=== PATIENT | female | born 1980 | race Caucasian/White ===

== ENCOUNTER 2018-02-10 06:49 | Emergency (ER) | payer BC ==
[2014-02-27 09:49] VITALS: Wt 68.0 kg
[~2018-02-10 06:49] MED LIST: ACET-3079 PO; AMOX-559 PO; AMOX875T60 PO; Acetaminophen PO; Benzocaine 60 ML TP; CIPR-344 PO; DIPH-1 PO; DOCU240C67 PO; FLUC150T40 PO; HYDR2TAB74 PO; IBU600 PO; Ibuprofen PO; LOR5 PO; LOR5/325 PO; LOR7.5/325 PO; Lanolin TP; METR-160 PO; NITR-105 PO; NORE1TAB81 PO; ONDA4TAB PO; ONDA8TAB98 PO; OXYC-865 PO; PRED20TA6 PO; PREN1TAB29 PO; TUCKS TP; bcp
--- NOTE | 2018-02-10 07:39 | ER Report ---
History and Physical Time Seen By MD: 07:00 Hx. of Stated Complaint: Pt. has had a cold since last week, and now has some pain with deep breathing and coughing. Afebrile in triage. Non-productive congested cough. HPI/ROS CHIEF COMPLAINT: Cough cold flulike symptoms HISTORY OF PRESENT ILLNESS: Otherwise healthy 38 year old female comes emergency Department today with 3-4 days of a productive cough sinus congestion takes [id number] cold medicines every 4-6 hours with some relief of symptoms denies any fever chills or sweats no decrease in by mouth says she is coughing up yellow phlegm feels a lot of pressure in her sinuses is had a continual rhinorrhea and and [place] congestion noted some decreased energy levels no recent travel no sick contacts no additional complaints noted. Comes in today because she said for about 5 minutes when she woke up this morning she felt somewhat short of breath but that subsequently resolved. Patient also states she has some tenderness in her right ear. REVIEW OF SYSTEMS: Respiratory: Cough no shortness of breath currently Cardiovascular: No chest pain, no palpitations. Gastrointestinal: No vomiting, no abdominal pain. Musculoskeletal: No back pain. Remainder of the 14 system rev: Yes Allergies: Coded Allergies: cefixime (Verified Allergy, Unknown, 02/10/18) Home Meds Active Scripts Amoxicillin/Pot Clav 875-125 Mg Tab (AUGMENTIN 875-125 TABLET) 1 Each Tablet, 1 TAB PO Q12H for 7 Days, #14 TAB 0 Refills Prov:FITZ BOOGIE MD 03/23/17 Reported Medications Norethindrone A-E Estradiol (LOESTRIN) 1 Each Tablet, 1 EACH PO QDAY 05/01/16 Reviewed Nurses Notes: Yes Old Medical Records Reviewed: Yes Hx Smoking: No Smoking Status: Never Smoker Exposure to Second Hand Smoke?: No Hx Substance Use Disorder: No Hx Alcohol Use: Yes (rare) Constitutional Vital Sign - Last 24 Hours 02/10/18 02/10/18 02/10/18 02/10/18 06:54 06:55 06:55 06:59 Temp 98.1 Pulse ??? 85 87 Resp 16 B/P (MAP) 128/93 (105) 128/93 Pulse Ox 97 96 O2 Delivery Room Air 02/10/18 02/10/18 02/10/18 02/10/18 07:00 07:04 07:09 07:14 Pulse 88 90 B/P (MAP) 128/85 (99) Pulse Ox 96 97 02/10/18 02/10/18 02/10/18 02/10/18 07:19 07:24 07:29 07:30 Pulse ??? 92 85 B/P (MAP) ???/??? Pulse Ox 94 96 02/10/18 02/10/18 02/10/18 02/10/18 07:34 07:39 07:44 07:49 Pulse 89 ??? 87 ??? Pulse Ox 96 96 89 02/10/18 02/10/18 02/10/18 07:59 08:00 08:09 Pulse 84 79 B/P (MAP) 104/71 Pulse Ox 96 96 Physical Exam General Appearance: The patient is alert, has no immediate need for airway protection and no current signs of toxicity. [ ] Eyes: Pupils equal and round no injection. Respiratory: Chest is non tender, lungs are clear to auscultation. Cardiac: regular rate and rhythm [ ] Gastrointestinal: Abdomen is soft and non tender, no masses, bowel sounds normal. Musculoskeletal: Neck: Neck is supple and non tender. Extremities have full range of motion and are non tender. Skin: No rashes or lesions. HEENT examination patient's right ear does demonstrate a little bit of erythema but no bulging TM no external movement pain in the pinnae or tragus negative throat exam was some mild erythematous changes but no tonsillar exudate or uvular deviation no. Tonsillar submandibular lymphadenopathy otherwise exam is normal DIFFERENTIAL DIAGNOSIS: After history and physical exam differential diagnosis was considered for common cold versus bronchitis versus sinusitis versus influenza versus pneumonia Medical Decision Making Data Points Laboratory Hematology Test 02/10/18 07:43 Influenza Virus Type A (PCR) Negative (NEGATIVE) Influenza Virus Type B (PCR) Negative (NEGATIVE) Group A Streptococcus Screen Negative (NEGATIVE) Chemistry Test 02/10/18 07:43 Influenza Virus Type A (PCR) Negative (NEGATIVE) Influenza Virus Type B (PCR) Negative (NEGATIVE) Group A Streptococcus Screen Negative (NEGATIVE) ED Course/Re-evaluation ED Course ED clinical course 38-year-old female comes in with Typical cold rhinorrhea type symptoms negative influenza agonist strep negative chest x-ray she does have significant sinus pressures all Be secondary to her viral cold however I will give her a prescription with instructions to not take the medication for at least 5 days if her symptoms resolve do not take it to be an antibiotic and she will potentially has clinical findings consistent with a possible sinusitis I did not CT at this point can be treating her empirically and have her follow up with primary care Decision to Disposition Date: Feb 10, 2018 Decision to Disposition Time: 08:34 Depart Departure Latest Vital Signs Vital Signs Date Time Temp Pulse Resp B/P (MAP) Pulse Ox O2 Delivery O2 Flow Rate FiO2 02/10/18 08:09 79 96 02/10/18 08:00 104/71 02/10/18 06:55 98.1 16 Room Air Impression: Primary Impression: Sinusitis Additional Impression: Cold Condition: Improved Disposition: HOME OR SELF-CARE Referrals: GAURAV ARMIJO 5 Days Patient Instructions: Sinusitis (ED) Problem Qualifiers MINERVA CONWAY MD Feb 10, 2018 07:39
--- NOTE | 2018-02-10 08:14 | RADIOLOGY IMAGING REPORT ---
FACILITY: [facility] - [place] PATIENT NAME: Chika Luna : 1980 MR: [id number] V: [id number] EXAM DATE: ORDERING PHYSICIAN: MINERVA CONWAY TECHNOLOGIST: Location: [facility] [place] Patient: Chika Luna : 1980 Visit/Account:[id number] Date of Sevice: 02/10/2018 CHEST PA AND LAT HISTORY: cough COMPARISON: 03/23/2017 FINDINGS: Cardiomediastinal contours: Normal Lungs and pleura: Normal Bones/soft tissues: Normal Other findings: None significant IMPRESSION: 1. Normal chest. No change. Report Dictated By: Luis Angel Hernandes MD at 02/10/2018 8:10 AM Report E-Signed By: Luis Angel Hernandes MD at 02/10/2018 8:11 AM WSN:[id number]
[2018-02-10 08:30] VITALS: BP 109/86
== END 2018-02-10 08:46 | disposition home or self-care (01) ==
LOC: ER 07:25
DX: J32.9 Chronic sinusitis, unspecified (principal); J00 Acute nasopharyngitis [common cold]
CPT/HCPCS: 71046; 87081; 87502; 87880; 99283

== ENCOUNTER 2018-07-31 08:25 | Emergency (ER) | payer BC ==
[2014-02-27 09:49] VITALS: Wt 65.8 kg
[~2018-07-31 08:25] MED LIST changes: -METR-160 PO; +METR500T15 PO
--- NOTE | 2018-07-31 08:29 | ER Report ---
History and Physical Time Seen By MD: 08:28 HPI/ROS CHIEF COMPLAINT: "Kidney stone" HISTORY OF PRESENT ILLNESS: A 38-year-old female with no contributory past medical history presents with severe sudden onset of left flank pain associated with nausea and vomiting began around 5 AM this morning. She states this feels similar to a kidney stone that she had when her son was born that occurred approximately 5 years ago. No fevers or chills. Patient denies any other significant past medical history. Does state that she has some dysuria and is unable to give a urine sample at this time. REVIEW OF SYSTEMS: Respiratory: No cough, no dyspnea. Cardiovascular: No chest pain, no palpitations. Gastrointestinal: Left flank pain, nausea with vomiting Musculoskeletal: Left flank pain Allergies: Coded Allergies: cefixime (Verified Allergy, Unknown, 07/31/18) Home Meds Active Scripts Ondansetron Hcl (ZOFRAN) 4 Mg Tablet, 4 MG PO Q8H for Nausea, #15 TAB 0 Refills Prov:EULALIO BURNS MD 07/31/18 Oxycodone Hcl/Acetaminophen (PERCOCET 5-325 MG TABLET) 1 Each Tablet, 1 EACH PO Q4H for PAIN, #18 TAB 0 Refills Prov:EULALIO BURNS MD 07/31/18 Discontinued Reported Medications Norethindrone A-E Estradiol (LOESTRIN) 1 Each Tablet, 1 EACH PO QDAY 05/01/16 Discontinued Scripts Amoxicillin/Pot Clav 875-125 Mg Tab (AUGMENTIN 875-125 TABLET) 1 Each Tablet, 1 TAB PO Q12H for 7 Days, #14 TAB 0 Refills Prov:FITZ BOOGIE MD 03/23/17 Past Medical/Surgical History Prior history of kidney stone approximately 5 years ago Hx Smoking: No Smoking Status: Never Smoker Exposure to Second Hand Smoke?: No Hx Substance Use Disorder: No Hx Alcohol Use: Yes (rare) Constitutional Vital Sign - Last 24 Hours 07/31/18 07/31/18 07/31/18 07/31/18 08:25 08:31 08:32 08:55 Temp 98.7 Pulse 63 63 60 Resp 18 B/P (MAP) 129/76 (93) 129/79 Pulse Ox 100 100 98 O2 Delivery Room Air 07/31/18 07/31/18 07/31/18 07/31/18 09:00 09:05 09:15 09:25 Pulse 59 B/P (MAP) 98/59 (72) 104/69 (81) Pulse Ox 100 86 O2 Delivery Room Air 07/31/18 07/31/18 09:30 09:35 Pulse 58 B/P (MAP) 103/66 (78) Pulse Ox 100 O2 Delivery Nasal Cannula O2 Flow Rate 1 Physical Exam General Appearance: The patient is alert, has no immediate need for airway protection and no signs of toxicity. Patient appears uncomfortable secondary to pain Cardiovascular: Regular rate and rhythm. Gastrointestinal: Abdomen is soft and non tender, no masses, bowel sounds normal. Neurological: Awake alert Musculoskeletal: Left flank pain Extremities are nontender, nonswollen and have full range of motion. Medical Decision Making Data Points Result Diagram: 07/31/18 0835 07/31/18 0835 Laboratory Hematology Test 07/31/18 08:35 Red Blood Count 4.98 M/uL (4.17-5.56) Mean Corpuscular Volume 89.8 fL (80.0-96.0) Mean Corpuscular Hemoglobin 30.8 pg (26.0-33.0) Mean Corpuscular Hemoglobin Concent 34.3 g/dL (32.0-36.0) Red Cell Distribution Width 13.1 % (11.5-14.5) Mean Platelet Volume 9.6 fL (7.2-11.1) Neutrophils (%) (Auto) 82.0 % (39.4-72.5) Lymphocytes (%) (Auto) 12.9 % (17.6-49.6) Monocytes (%) (Auto) 4.2 % (4.1-12.4) Eosinophils (%) (Auto) 0.4 % (0.4-6.7) Basophils (%) (Auto) 0.5 % (0.3-1.4) Nucleated RBC Relative Count (auto) 0.6 /100WBC Neutrophils # (Auto) 7.0 K/uL (2.0-7.4) Lymphocytes # (Auto) 1.1 K/uL (1.3-3.6) Monocytes # (Auto) 0.4 K/uL (0.3-1.0) Eosinophils # (Auto) 0.0 K/uL (0.0-0.5) Basophils # (Auto) 0.0 K/uL (0.0-0.1) Nucleated RBC Absolute Count (auto) 0.05 K/uL Sodium Level 139 mmol/L (137-145) Potassium Level 3.8 mmol/L (3.5-5.0) Chloride Level 106 mmol/L (98-107) Carbon Dioxide Level 23 mmol/L (22-31) Blood Urea Nitrogen 15 mg/dl (7-18) Creatinine 1.10 mg/dl (0.52-1.04) Glomerular Filtration Rate Calc 55.3 Random Glucose 133 mg/dl (75-110) Calcium Level 9.4 mg/dl (8.4-10.2) Chemistry Test 07/31/18 08:35 White Blood Count 8.5 k/uL (4.5-11.0) Red Blood Count 4.98 M/uL (4.17-5.56) Hemoglobin 15.4 g/dL (12.0-16.0) Hematocrit 44.8 % (34.0-47.0) Mean Corpuscular Volume 89.8 fL (80.0-96.0) Mean Corpuscular Hemoglobin 30.8 pg (26.0-33.0) Mean Corpuscular Hemoglobin Concent 34.3 g/dL (32.0-36.0) Red Cell Distribution Width 13.1 % (11.5-14.5) Platelet Count 274 K/uL (150-450) Mean Platelet Volume 9.6 fL (7.2-11.1) Neutrophils (%) (Auto) 82.0 % (39.4-72.5) Lymphocytes (%) (Auto) 12.9 % (17.6-49.6) Monocytes (%) (Auto) 4.2 % (4.1-12.4) Eosinophils (%) (Auto) 0.4 % (0.4-6.7) Basophils (%) (Auto) 0.5 % (0.3-1.4) Nucleated RBC Relative Count (auto) 0.6 /100WBC Neutrophils # (Auto) 7.0 K/uL (2.0-7.4) Lymphocytes # (Auto) 1.1 K/uL (1.3-3.6) Monocytes # (Auto) 0.4 K/uL (0.3-1.0) Eosinophils # (Auto) 0.0 K/uL (0.0-0.5) Basophils # (Auto) 0.0 K/uL (0.0-0.1) Nucleated RBC Absolute Count (auto) 0.05 K/uL Glomerular Filtration Rate Calc 55.3 Calcium Level 9.4 mg/dl (8.4-10.2) EKG/Imaging Imaging FACILITY: [facility] PATIENT NAME: Chika Luna : 1980 MR: [id number] V: [id number] EXAM DATE: ORDERING PHYSICIAN: EULALIO BURNS TECHNOLOGIST: Location: [facility] - [place] Patient: Chika Luna : 1980 Visit/Account:[id number] Date of Sevice: 07/31/2018 CT ABDOMEN PELVIS W/O CON History: None. Technique: CT images were obtained through the abdomen and pelvis without the injection of intravenous contrast. Coronal and sagittal reformations were then created. One of the following dose optimization techniques was utilized in the performance of this exam: Automated exposure control; adjustment of the mA and/or kV according to the patient's size; or use of an iterative reconstruction technique. Specific details can be referenced in the facility's radiology CT exam operational policy. Comparison study: CT scans of March 16, 20172016. Findings: Lung bases: Negative Hepatobiliary: No liver mass is seen, but the noncontrast study limits evaluation of the liver. The gallbladder so far as visualized is unremarkable and there is no gallstone disease. Spleen: Negative. Adrenals: Negative Pancreas: Negative. Kidneys/genitourinary/retroperitoneum: There is mild hydronephrosis and hydroureter on the left side related to a distal 6 x 4 mm ureteral calculus. There is minimal perinephric inflammatory change. There is no nephrolithiasis on the left or right side. No additional calculi are seen. There is no bladder calculus. Bowel/peritoneum/mesentery: There has probably been a prior appendectomy. There are no dilated loops of large or small bowel. Pelvic/genital urinary: The uterus is unremarkable. Neither the right or left ovary is definitively seen. Vessels: Negative. Lymph node: Negative. Body wall/bones: Negative Peritoneal cavity: No findings of ascites or pneumoperitoneum. IMPRESSION: 1. In the distal left ureter there is a 6 x 4 mm ureteral calculus producing mild hydronephrosis and hydroureter. The left kidney is mildly enlarged. There is no nephrolithiasis. Results were called to EULALIO BURNS M.D. At 07/31/2018 9:41 AM. Report Dictated By: Negrito Rader MD at 07/31/2018 9:34 AM Report E-Signed By: Negrito Rader MD at 07/31/2018 9:41 AM WSN:[id number] ED Course/Re-evaluation ED Course 07/31/2018 8:49:47 am that ultrasound shows moderate hydronephrosis of the left kidney with hydroureter. Plan at this time will be IV pain medication including Dilaudid and Toradol. We'll give IV Zofran for nausea. I will give IV fluids to assist with hydration to obtain a urine sample. We'll perform noncontrast CT of the abdomen and pelvis to look for size and location of suspected kidney stone. 07/31/2018 9:35:08 am patient improved with current pain regimen. CT scan shows an apparent kidney stone at the left ureterovesicular junction measuring approximately 0.27 cm Decision to Disposition Date: Jul 31, 2018 Decision to Disposition Time: 09:43 Depart Departure Latest Vital Signs Vital Signs Date Time Temp Pulse Resp B/P (MAP) Pulse Ox O2 Delivery O2 Flow Rate FiO2 07/31/18 09:35 58 100 Nasal Cannula 1 07/31/18 09:30 103/66 (78) 07/31/18 08:32 98.7 18 Impression: Primary Impression: Kidney stone Condition: Improved Disposition: HOME OR SELF-CARE Referrals: DOLORES HERRERA MD Make a follow up appointment in the next 30-60 days for follow up of your kidney stone New Scripts Ondansetron Hcl (ZOFRAN) 4 Mg Tablet 4 MG PO Q8H for Nausea, #15 TAB 0 Refills Prov: EULALIO BURNS MD 07/31/18 Oxycodone Hcl/Acetaminophen (PERCOCET 5-325 MG TABLET) 1 Each Tablet 1 EACH PO Q4H for PAIN, #18 TAB 0 Refills Prov: EULALIO BURNS MD 07/31/18 Departure Forms: ER Transition Record, Medications Reconciliation, Off Work/School Form, School or Work Release?: Work Number of days to be released: 3 Patient Portal Information Patient Instructions: Kidney Stones (ED) Additional Instructions: Return to the emergency department if your pain is not controlled with her current outpatient pain medications or you have intractable vomiting. Return to the emergency department at any time if you develops fever. Return to the emergency department if your pain persists greater than 72 hours. EULALIO BURNS MD Jul 31, 2018 08:29
[2018-07-31] MEDS ORDERED: HYDROMORPHONE HCL 1 MG/ML SYRINGE IVP ONE (08:45)
[2018-07-31] MEDS ORDERED: NS(*) 0.9% 1000 ML BAG 1,000 ML IV ONE (08:45)
[2018-07-31] MEDS ORDERED: ONDANSETRON 4 MG/2 ML VIAL IVP ONE (08:45)
[2018-07-31] MEDS ORDERED: KETOROLAC 15 MG/ML VIAL IVP ONE (08:45)
[2018-07-31 08:57] LABS: PLATELET COUNT, AUTOMATED 274 K/uL (150-450)
[2018-07-31 09:30] VITALS: BP 103/66
[2018-07-31] MEDS ORDERED: OXYC-865 PO ×2 (09:36→23:30)
[2018-07-31] MEDS ORDERED: ONDA4TAB97 PO (09:36)
--- NOTE | 2018-07-31 09:45 | RADIOLOGY IMAGING REPORT ---
FACILITY: [facility] PATIENT NAME: Chika Luna : 1980 MR: [id number] V: [id number] EXAM DATE: ORDERING PHYSICIAN: EULALIO BURNS TECHNOLOGIST: Location: [facility] - [place] Patient: Chika Luna : 1980 Visit/Account:[id number] Date of Sevice: 07/31/2018 CT ABDOMEN PELVIS W/O CON History: None. Technique: CT images were obtained through the abdomen and pelvis without the injection of intravenou s contrast. Coronal and sagittal reformations were then created. One of the following dose optimization techniques was utilized in the performance of this exam: Autom ated exposure control; adjustment of the mA and/or kV according to the patient's size; or use of an i terative reconstruction technique. Specific details can be referenced in the facility's radiology C T exam operational policy. Comparison study: CT scans of March 16, 20172016. Findings: Lung bases: Negative Hepatobiliary: No liver mass is seen, but the noncontrast study limits evaluation of the liver. The g allbladder so far as visualized is unremarkable and there is no gallstone disease. Spleen: Negative. Adrenals: Negative Pancreas: Negative. Kidneys/genitourinary/retroperitoneum: There is mild hydronephrosis and hydroureter on the left side related to a distal 6 x 4 mm ureteral calculus. There is minimal perinephric inflammatory change. The re is no nephrolithiasis on the left or right side. No additional calculi are seen. There is no bladd er calculus. Bowel/peritoneum/mesentery: There has probably been a prior appendectomy. There are no dilated loops of large or small bowel. Pelvic/genital urinary: The uterus is unremarkable. Neither the right or left ovary is definitively s een. Vessels: Negative. Lymph node: Negative. Body wall/bones: Negative Peritoneal cavity: No findings of ascites or pneumoperitoneum. IMPRESSION: 1. In the distal left ureter there is a 6 x 4 mm ureteral calculus producing mild hydronephrosis and hydroureter. The left kidney is mildly enlarged. There is no nephrolithiasis. Results were called to EULALIO BURNS M.D. At 07/31/2018 9:41 AM. Report Dictated By: Negrito Rader MD at 07/31/2018 9:34 AM Report E-Signed By: Negrito Rader MD at 07/31/2018 9:41 AM WSN:[id number]
[2018-07-31] MEDS ORDERED: SULF-198 PO (23:30)
== END 2018-07-31 09:51 | disposition home or self-care (01) ==
LOC: ER 08:31
DX: N13.2 Hydronephrosis with renal and ureteral calculous obstruction (principal); N13.4 Hydroureter
CPT/HCPCS: 74176; 85025; 96361; 96374; 96375; 99284; J1170; J1885; J2405; J7030; 82310; 82374; 82435; 82565; 82947; 84132; 84295; 84520

== ENCOUNTER 2018-07-31 21:44 | Emergency (ER) | payer BC ==
[2014-02-27 09:49] VITALS: Wt 65.8 kg
[~2018-07-31 21:44] MED LIST changes: +ONDA4TAB97 PO
--- NOTE | 2018-07-31 22:02 | ER Report ---
History and Physical Time Seen By MD: 22:01 Hx. of Stated Complaint: PATIENT REPORTS BEING IN EARLIER TODAY, WAS DIAGNOSED WITH KIDNEY STONES. REPORTS WORSENING SYMPTOMS WITH NAUSEA, VOMITING, AND A FEVER HPI/ROS CHIEF COMPLAINT: Fevers and chills and worsening pain associated with her kidney stone HISTORY OF PRESENT ILLNESS: This is a 38-year-old female. She was seen earlier in the ER today with kidney stone. Has a 4 x 6 mm stone at the left UVJ. Today noted fevers and chills subjectively. Pain also is changes now is more of a heavy pressure. Still feels the urge to urinate but is not able to urinate much despite drinking lots of fluids. Was concerned because of these changes. She is using ibuprofen for pain, no other pain medicines. No further nausea. Has a history of frequent urinary tract infections in the past. Allergies: Coded Allergies: cefixime (Verified Allergy, Unknown, 07/31/18) Home Meds Active Scripts Oxycodone Hcl/Acetaminophen (PERCOCET 5-325 MG TABLET) 1 Each Tablet, 1 EACH PO Q4H PRN for PAIN, #6 TAB 0 Refills Prov:FITZ BOOGIE MD 07/31/18 Sulfamethoxazole/Trimet 800-160 Mg Tab (BACTRIM DS TABLET) 1 Each Tablet, 1 TAB PO Q12H, #6 TAB 0 Refills Prov:FITZ BOOGIE MD 07/31/18 Ondansetron Hcl (ZOFRAN) 4 Mg Tablet, 4 MG PO Q8H for Nausea, #15 TAB 0 Refills Prov:EULALIO BURNS MD 07/31/18 Oxycodone Hcl/Acetaminophen (PERCOCET 5-325 MG TABLET) 1 Each Tablet, 1 EACH PO Q4H for PAIN, #18 TAB 0 Refills Prov:EULALIO BURNS MD 07/31/18 Discontinued Reported Medications Norethindrone A-E Estradiol (LOESTRIN) 1 Each Tablet, 1 EACH PO QDAY 05/01/16 Discontinued Scripts Amoxicillin/Pot Clav 875-125 Mg Tab (AUGMENTIN 875-125 TABLET) 1 Each Tablet, 1 TAB PO Q12H for 7 Days, #14 TAB 0 Refills Prov:FITZ BOOGIE MD 03/23/17 Reviewed Nurses Notes: Yes Hx Smoking: No Smoking Status: Never Smoker Exposure to Second Hand Smoke?: No Hx Substance Use Disorder: No Hx Alcohol Use: Yes (rare) Constitutional Vital Sign - Last 24 Hours 07/31/18 07/31/18 07/31/18 07/31/18 21:49 23:00 23:30 23:39 Temp 98.1 Pulse 78 71 81 Resp 15 B/P (MAP) 115/75 108/71 (83) Pulse Ox 96 95 94 O2 Delivery Room Air Physical Exam General Appearance: The patient is alert. Having some acute distress and anxiety because of the symptoms she is having. ENT: Moist mucous membranes. Respiratory: Breathing easily, clear Cardiovascular: Regular rate and rhythm. Gastrointestinal: Continued abdominal pain, flank pain Neurological: Alert and oriented x3. No focal deficits. Skin: Warm and dry. DIFFERENTIAL DIAGNOSIS: After history and physical exam, differential diagnosis was considered for continued kidney stone now with symptoms of fever and increasing pain. Medical Decision Making Data Points Result Diagram: 07/31/18220007/31/182200 Laboratory Hematology Test 07/31/18 21:55 07/31/18 22:01 Urine Color Yellow Urine Clarity Clear Urine pH 5.0 pH (4.8-9.5) Urine Specific [place] 1.023 Urine Protein Negative mg/dL (NEGATIVE) Urine Glucose (UA) Negative mg/dL (NEGATIVE) Urine Ketones Negative mg/dL (NEGATIVE) Urine Blood Small (NEGATIVE) Urine Nitrite Negative (NEGATIVE) Urine Bilirubin Negative (NEGATIVE) Urine Urobilinogen Negative mg/dL (0.2-1.9) Urine Leukocyte Esterase Negative (NEGATIVE) Urine RBC 1 /HPF (0-2/HPF) Urine WBC 2 /HPF (0-5/HPF) Urine Squamous Epithelial Cells Many /LPF (</=FEW) Urine Transitional Epithelial Cells Few /LPF (NONE-FEW) Urine Bacteria Negative /HPF (NONE-FEW) Urine Mucus None /HPF (NONE-FEW) Red Blood Count 4.63 M/uL (4.17-5.56) Mean Corpuscular Volume 90.1 fL (80.0-96.0) Mean Corpuscular Hemoglobin 30.1 pg (26.0-33.0) Mean Corpuscular Hemoglobin Concent 33.4 g/dL (32.0-36.0) Red Cell Distribution Width 13.1 % (11.5-14.5) Mean Platelet Volume 9.6 fL (7.2-11.1) Neutrophils (%) (Auto) 80.7 % (39.4-72.5) Lymphocytes (%) (Auto) 11.2 % (17.6-49.6) Monocytes (%) (Auto) 7.3 % (4.1-12.4) Eosinophils (%) (Auto) 0.2 % (0.4-6.7) Basophils (%) (Auto) 0.6 % (0.3-1.4) Nucleated RBC Relative Count (auto) 0.0 /100WBC Neutrophils # (Auto) 9.3 K/uL (2.0-7.4) Lymphocytes # (Auto) 1.3 K/uL (1.3-3.6) Monocytes # (Auto) 0.8 K/uL (0.3-1.0) Eosinophils # (Auto) 0.0 K/uL (0.0-0.5) Basophils # (Auto) 0.1 K/uL (0.0-0.1) Nucleated RBC Absolute Count (auto) 0.00 K/uL Sodium Level 141 mmol/L (137-145) Potassium Level 3.8 mmol/L (3.5-5.0) Chloride Level 108 mmol/L (98-107) Carbon Dioxide Level 24 mmol/L (22-31) Blood Urea Nitrogen 13 mg/dl (7-18) Creatinine 1.20 mg/dl (0.52-1.04) Glomerular Filtration Rate Calc 50.0 Random Glucose 105 mg/dl (75-110) Calcium Level 8.8 mg/dl (8.4-10.2) Total Bilirubin 0.4 mg/dl (0.2-1.3) Aspartate Amino Transf (AST/SGOT) 22 U/L (0-35) Alanine Aminotransferase (ALT/SGPT) 21 U/L (0-56) Alkaline Phosphatase 47 U/L (0-126) Total Protein 7.2 g/dl (6.3-8.2) Albumin 4.3 g/dl (3.5-5.0) Chemistry Test 07/31/18 21:55 07/31/18 22:01 Urine Color Yellow Urine Clarity Clear Urine pH 5.0 pH (4.8-9.5) Urine Specific [place] 1.023 Urine Protein Negative mg/dL (NEGATIVE) Urine Glucose (UA) Negative mg/dL (NEGATIVE) Urine Ketones Negative mg/dL (NEGATIVE) Urine Blood Small (NEGATIVE) Urine Nitrite Negative (NEGATIVE) Urine Bilirubin Negative (NEGATIVE) Urine Urobilinogen Negative mg/dL (0.2-1.9) Urine Leukocyte Esterase Negative (NEGATIVE) Urine RBC 1 /HPF (0-2/HPF) Urine WBC 2 /HPF (0-5/HPF) Urine Squamous Epithelial Cells Many /LPF (</=FEW) Urine Transitional Epithelial Cells Few /LPF (NONE-FEW) Urine Bacteria Negative /HPF (NONE-FEW) Urine Mucus None /HPF (NONE-FEW) White Blood Count 11.5 k/uL (4.5-11.0) Red Blood Count 4.63 M/uL (4.17-5.56) Hemoglobin 13.9 g/dL (12.0-16.0) Hematocrit 41.7 % (34.0-47.0) Mean Corpuscular Volume 90.1 fL (80.0-96.0) Mean Corpuscular Hemoglobin 30.1 pg (26.0-33.0) Mean Corpuscular Hemoglobin Concent 33.4 g/dL (32.0-36.0) Red Cell Distribution Width 13.1 % (11.5-14.5) Platelet Count 247 K/uL (150-450) Mean Platelet Volume 9.6 fL (7.2-11.1) Neutrophils (%) (Auto) 80.7 % (39.4-72.5) Lymphocytes (%) (Auto) 11.2 % (17.6-49.6) Monocytes (%) (Auto) 7.3 % (4.1-12.4) Eosinophils (%) (Auto) 0.2 % (0.4-6.7) Basophils (%) (Auto) 0.6 % (0.3-1.4) Nucleated RBC Relative Count (auto) 0.0 /100WBC Neutrophils # (Auto) 9.3 K/uL (2.0-7.4) Lymphocytes # (Auto) 1.3 K/uL (1.3-3.6) Monocytes # (Auto) 0.8 K/uL (0.3-1.0) Eosinophils # (Auto) 0.0 K/uL (0.0-0.5) Basophils # (Auto) 0.1 K/uL (0.0-0.1) Nucleated RBC Absolute Count (auto) 0.00 K/uL Glomerular Filtration Rate Calc 50.0 Calcium Level 8.8 mg/dl (8.4-10.2) Total Bilirubin 0.4 mg/dl (0.2-1.3) Aspartate Amino Transf (AST/SGOT) 22 U/L (0-35) Alanine Aminotransferase (ALT/SGPT) 21 U/L (0-56) Alkaline Phosphatase 47 U/L (0-126) Total Protein 7.2 g/dl (6.3-8.2) Albumin 4.3 g/dl (3.5-5.0) Urinalysis Test 07/31/18 21:55 Urine Color Yellow Urine Clarity Clear Urine pH 5.0 pH (4.8-9.5) Urine Specific [place] 1.023 Urine Protein Negative mg/dL (NEGATIVE) Urine Glucose (UA) Negative mg/dL (NEGATIVE) Urine Ketones Negative mg/dL (NEGATIVE) Urine Blood Small (NEGATIVE) Urine Nitrite Negative (NEGATIVE) Urine Bilirubin Negative (NEGATIVE) Urine Urobilinogen Negative mg/dL (0.2-1.9) Urine Leukocyte Esterase Negative (NEGATIVE) Urine RBC 1 /HPF (0-2/HPF) Urine WBC 2 /HPF (0-5/HPF) Urine Squamous Epithelial Cells Many /LPF (</=FEW) Urine Transitional Epithelial Cells Few /LPF (NONE-FEW) Urine Bacteria Negative /HPF (NONE-FEW) Urine Mucus None /HPF (NONE-FEW) ED Course/Re-evaluation ED Course Labs were obtained, white count has gone up since this morning with slight shift. BUN/creatinine are not worse. Urinalysis does not show signs of infection. Discussed the case with her as well as the urologist on-call, Dr. Joiner. We will run a urine culture, provide pain medicines, and start on Bactrim at this point. Should she have worsening fevers, pain, or vomiting she can return and would need to consider admission the hospital with urologic intervention at that point. Discussed all this with the patient as well as option for admission this time and they agreed with the current plan. Decision to Disposition Date: Jul 31, 2018 Decision to Disposition Time: 23:27 Depart Departure Latest Vital Signs Vital Signs Date Time Temp Pulse Resp B/P (MAP) Pulse Ox O2 Delivery O2 Flow Rate FiO2 07/31/18 23:39 108/71 (83) 07/31/18 23:30 81 94 07/31/18 21:49 98.1 15 Room Air Impression: Primary Impression: Nephrolithiasis Condition: Improved Disposition: HOME OR SELF-CARE New Scripts Oxycodone Hcl/Acetaminophen (PERCOCET 5-325 MG TABLET) 1 Each Tablet 1 EACH PO Q4H PRN for PAIN, #6 TAB 0 Refills Prov: FITZ BOOGIE MD 07/31/18 Sulfamethoxazole/Trimet 800-160 Mg Tab (BACTRIM DS TABLET) 1 Each Tablet 1 TAB PO Q12H, #6 TAB 0 Refills Prov: FITZ BOOGIE MD 07/31/18 Patient Instructions: Kidney Stones (ED) Additional Instructions: You may have a new urinary tract infection associated with your kidney stone. The stone is small and in an area that should pass. We are going to have you add Percocet 5/325, one every 4 hours as needed for pain. Keep working on increased fluids like you have been doing today. Return if worsening fevers (fever over 102.0), worsening uncontrolled pain, worsening uncontrolled vomiting. FITZ BOOGIE MD Jul 31, 2018 22:02
[2018-07-31 22:16] LABS: PLATELET COUNT, AUTOMATED 247 K/uL (150-450)
[2018-07-31] MEDS ORDERED: TRIMETH/SULFA DS 160-800MG TAB PO ONE (23:30)
[2018-07-31] MEDS ORDERED: OXYC-865 PO (23:30)
[2018-07-31] MEDS ORDERED: oxyCODONE/ACETAMIN 5/325MG TH 2 TAB/BOTTLE PO ONE (23:30)
[2018-07-31] MEDS ORDERED: TRIMETHOPRIM/SULFA 160-800 TH 2 TAB/BOTTLE PO ONE (23:30)
[2018-07-31] MEDS ORDERED: SULF-198 PO (23:30)
[2018-07-31 23:39] VITALS: BP 108/71
== END 2018-07-31 23:45 | disposition home or self-care (01) ==
LOC: ER 22:03
DX: N20.0 Calculus of kidney (principal)
CPT/HCPCS: 81001; 82040; 82247; 82310; 82374; 82435; 82565; 82947; 84075; 84132; 84155; 84295; 84450; 84460; 84520; 85025; 87088; 99283